=== PATIENT | male | born 1985 | race African-American/Black ===

== ENCOUNTER 2022-06-23 05:04 | Inpatient (IN) | payer OTHER ==
[~2022-06-23] VITALS: Ht 172.7 cm; Wt 86.2 kg
[2022-06-23] MEDS ORDERED: ONDANSETRON HCL INJ 2MG/ML 2ML 2 MG/ML VIAL IV STA (06:36)
[2022-06-23] MEDS ORDERED: KETOROLAC TROMETHAMINE 30 MG/ML VIAL IV STA (06:36)
[2022-06-23] MEDS ORDERED: Vancomycin IV 1 GM in SODIUM CHLORIDE 0.9% 250ML 250 ML IV ONE (06:45)
[2022-06-23] MEDS ORDERED: SODIUM CHLORIDE 0.9% 1000ML 1,000 ML IV SCH (06:45)
[2022-06-23] MEDS ORDERED: IOPAMIDOL 370 MG/ML 100 ML INFUS..BTL INJ ONE (07:08)
[2022-06-23] MEDS ORDERED: PIPERACILLIN/TAZOBACTAM 3.375 GM VIAL ONE (07:20)
[2022-06-23] MEDS ORDERED: SODIUM CHLORIDE 0.9% 250ML 250 ML ONE (07:20)
[2022-06-23] MEDS ORDERED: Vancomycin IV 1 GM VIAL ONE (07:21)
[2022-06-23] MEDS ORDERED: Morphine 4mg INJECTION 4 MG/ML INJ IV PRN (08:30)
[2022-06-23] MEDS ORDERED: ONDANSETRON HCL INJ 2MG/ML 2ML 2 MG/ML VIAL IV PRN (08:30)
[2022-06-23] MEDS: Vancomycin IV 1 GM in SODIUM CHLORIDE 0.9% 250ML 250 ML IV SCH ×2 (08:30→21:31)
[2022-06-23] MEDS: SODIUM CHLORIDE 0.9% 1000ML 1,000 ML IV SCH ×2 (08:41→21:48)
[2022-06-23] MEDS ORDERED: ACETAMINOPHEN 325 MG TAB PO PRN (11:30)
[2022-06-23] MEDS ORDERED: HYDRALAZINE HCL 20 MG/ML VIAL IV PRN (11:30)
[2022-06-23] MEDS ORDERED: POLYETHYLENE GLYCOL 3350 17 GM PACK PO PRN (11:30)
[2022-06-23 11:40] VITALS: BP 117/84
[2022-06-23] MEDS ORDERED: Morphine 2mg Syringe 2 MG/ML SYR IV PRN (11:45)
[2022-06-23] MEDS: METRONIDAZOLE 500MG/NS 100ML 100 ML IV SCH ×2 (12:06→17:14)
[2022-06-23] MEDS: DOCUSATE SODIUM 100 MG CAP PO SCH ×3 (12:18→21:29)
[2022-06-23] MEDS ORDERED: DOCUSATE SODIUM 100 MG CAP PO SCH (13:00)
[2022-06-23] MEDS: FAMOTIDINE 20 MG/2 ML VIAL IV SCH (17:13)
[2022-06-23] MEDS: HYDROMORPHONE 1MG/1ML INJ IV PRN ×2 (17:14→21:48)
[2022-06-23 17:35] VITALS: BP 104/63
[2022-06-23 20:00] VITALS: BP 92/64
[2022-06-23] MEDS ORDERED: TEMAZEPAM 7.5 MG CAP PO PRN (21:00)
[2022-06-24] VITALS (9 sets, daily range): BP systolic 104–129; BP diastolic 63–88
[2022-06-24] MEDS: METRONIDAZOLE 500MG/NS 100ML 100 ML IV SCH ×5 (00:29→23:36)
[2022-06-24] MEDS: HYDROMORPHONE 1MG/1ML INJ IV PRN (05:19)
[2022-06-24] MEDS: SODIUM CHLORIDE 0.9% 1000ML 1,000 ML IV SCH ×3 (05:53→16:30)
[2022-06-24 06:31] LABS: BASOPHILS # (AUTO) 0.1 (0.0-0.1); BASOPHILS % 0.3 % (0.0-1.0); EOSINOPHILS % 0.1 % (0.0-6.0); HEMATOCRIT 34.1 % (38.2-49.6); HEMOGLOBIN 11.2 g/dL (14.0-18.0); LYMPHOCYTES # (AUTO) 1.4 (1.0-3.2); LYMPHOCYTES % 6.8 % (18.0-39.1); MEAN CORPUSCULAR HGB CONC 32.8 g/dL (31-35); MEAN CORPUSCULAR VOLUME 85.3 fL (81-99); MONOCYTES # (AUTO) 1.4 (0.2-0.8); NEUTROPHILS # (AUTO) 16.9 (2.1-6.9); NEUTROPHILS % 84.5 % (38.7-80.0); PLATELET COUNT 227 x10e3/uL (140-360); RED CELL DISTRIBUTION WIDTH 12.6 % (11.7-14.4)
[2022-06-24 06:34] LABS: CHOL/HDL RATIO 3.1 (3.9-4.7); MAGNESIUM 1.8 MG/DL (1.3-2.1); PHOSPHORUS 1.7 MG/DL (2.3-4.7)
[2022-06-24] MEDS ORDERED: TEMAZEPAM 15 MG CAP PO PRN (07:00)
[2022-06-24 07:01] LABS: ALBUMIN/GLOBULIN RATIO 0.7 (0.8-2.0); ANION GAP 16.8 mmol/L (8-16); CALCIUM 8.7 mg/dL (8.4-10.2); CREATININE, SERUM 1.14 mg/dL (0.72-1.25); POTASSIUM 3.8 mmol/L (3.5-5.1)
[2022-06-24 07:02] LABS: FERRITIN 546.33 ng/mL (21.81-274.66); THYROID STIMULATING HORMONE 1.74 uIU/mL (0.350-4.940)
[2022-06-24] MEDS: FAMOTIDINE 20 MG/2 ML VIAL IV SCH ×2 (08:53→16:23)
[2022-06-24] MEDS: Vancomycin IV 1 GM in SODIUM CHLORIDE 0.9% 250ML 250 ML IV SCH (08:53)
[2022-06-24] MEDS: ASCORBIC ACID 500 MG TAB PO SCH ×2 (09:00→16:23)
[2022-06-24] MEDS: DOCUSATE SODIUM 100 MG CAP PO SCH ×3 (09:00→20:50)
[2022-06-24] MEDS ORDERED: POTASSIUM PHOSPHATE 15 MM in SODIUM CHLORIDE 0.9% 250ML 250 ML IV ONE (10:00)
[2022-06-24] MEDS ORDERED: LIDOCAINE HCL 1% LOCAL INJ 20 ML VIAL ONE (11:08)
[2022-06-24] MEDS ORDERED: BUPIVACAINE 0.5%/EPI 30 ML SDV INJ ONE (11:08)
[2022-06-24] MEDS ORDERED: DEXAMETHASONE SOD PHOS INJ 4 MG/ML SDV ONE (12:10)
[2022-06-24] MEDS ORDERED: POVIDONE IODINE 0.05% 0.05 % ML PO ONE (12:10)
[2022-06-24] MEDS ORDERED: PROPOFOL IV EMULSION 10 MG/ML 20 ML VIAL ONE (12:10)
[2022-06-24] MEDS ORDERED: ONDANSETRON HCL INJ 2MG/ML 2ML 2 MG/ML VIAL ONE (12:10)
[2022-06-24] MEDS ORDERED: KETOROLAC TROMETHAMINE 30 MG/ML VIAL ONE (12:10)
[2022-06-24] MEDS ORDERED: LIDOCAINE HCL 2% LOCAL INJ 5 ML SDV VIAL INJ ONE (12:10)
[2022-06-24] MEDS ORDERED: SEVOFLURANE INHAL SOLN 250 ML PEN BTL ONE (12:10)
[2022-06-24] MEDS ORDERED: LIDOCAINE JELLY 2% 10ML URO-JET ONE (12:21)
[2022-06-24] MEDS ORDERED: FENTANYL CITRATE/PF 100MCG/2 ML INJ ONE (12:29)
[2022-06-24] MEDS: IRON SUCROSE 100 MG in SODIUM CHLORIDE 0.9% 100 ML IV SCH (13:10)
[2022-06-24 14:41] LABS: CLARITY,URINE SL CLOUDY (CLEAR); COLOR,URINE AMBER (YELLOW); KETONES,URINE 1+ (NEGATIVE); LEUKOCYTE ESTERASE ,URINE NEGATIVE (NEGATIVE); NITRITE,URINE NEGATIVE (NEGATIVE); PROTEIN,URINE DIPSTICK 1+ (NEGATIVE); URINE UROBILINOGEN 1 mg/dL (0.2 - 1)
[2022-06-24 14:53] LABS: BACTERIA,URINE MODERATE /HPF; RBC,URINE 0-5 /HPF (0-5)
[2022-06-25] VITALS (9 sets, daily range): BP systolic 101–124; BP diastolic 58–88
[2022-06-25] MEDS: SODIUM CHLORIDE 0.9% 1000ML 1,000 ML IV SCH ×3 (00:30→21:51)
[2022-06-25 05:43] LABS: BASOPHILS # (AUTO) 0.1 (0.0-0.1); BASOPHILS % 0.2 % (0.0-1.0); EOSINOPHILS % 0.1 % (0.0-6.0); HEMATOCRIT 30.7 % (38.2-49.6); HEMOGLOBIN 9.7 g/dL (14.0-18.0); LYMPHOCYTES % 3.8 % (18.0-39.1); MEAN CORPUSCULAR HEMOGLOBIN 28.2 pg (28-32); MEAN CORPUSCULAR HGB CONC 31.6 g/dL (31-35); MEAN CORPUSCULAR VOLUME 89.2 fL (81-99); MONOCYTES # (AUTO) 1.4 (0.2-0.8); NEUTROPHILS # (AUTO) 24.5 (2.1-6.9); NEUTROPHILS % 89.9 % (38.7-80.0); PLATELET COUNT 222 x10e3/uL (140-360); RED BLOOD COUNT 3.44 x10e6/uL (4.3-5.7); RED CELL DISTRIBUTION WIDTH 12.2 % (11.7-14.4)
[2022-06-25] MEDS: METRONIDAZOLE 500MG/NS 100ML 100 ML IV SCH ×3 (06:06→16:16)
[2022-06-25 06:08] LABS: ANION GAP 14.7 mmol/L (8-16); CALCIUM 8.3 mg/dL (8.4-10.2); CREATININE, SERUM 0.88 mg/dL (0.72-1.25); PHOSPHORUS 2.3 MG/DL (2.3-4.7); POTASSIUM 3.7 mmol/L (3.5-5.1)
[2022-06-25 07:41] LABS: EOSINOPHILS % (MANUAL) 1 % (0-7); LYMPHOCYTES % (MANUAL) 1 % (19-48); MONOCYTES % (MANUAL) 4 % (3.4-9.0); NEUTROPHILS % (MANUAL) 94 % (40-74)
[2022-06-25 07:42] LABS: PLATELET ESTIMATE ADEQUATE; PLATELET MORPHOLOGY COMMENT NORMAL; RBC MORPHOLOGY COMMENT NORMAL
[2022-06-25] MEDS: DOCUSATE SODIUM 100 MG CAP PO SCH ×3 (09:23→21:50)
[2022-06-25] MEDS: FAMOTIDINE 20 MG/2 ML VIAL IV SCH ×2 (09:23→16:16)
[2022-06-25] MEDS: ASCORBIC ACID 500 MG TAB PO SCH ×2 (09:23→16:15)
[2022-06-25] MEDS: IRON SUCROSE 100 MG in SODIUM CHLORIDE 0.9% 100 ML IV SCH (09:23)
[2022-06-25] MEDS ORDERED: ASCORBIC ACID500 MG PO (09:49)
[2022-06-25] MEDS ORDERED: FERROUS SULFAT325 MG PO (09:49)
[2022-06-25] MEDS: NEOMYCIN/POLYMYXIN/BACITRACIN 15 GM TUBE TOP SCH (10:43)
[2022-06-25] MEDS: HYDROMORPHONE 1MG/1ML INJ IV PRN ×3 (12:31→21:48)
[2022-06-26] VITALS (7 sets, daily range): BP systolic 103–119; BP diastolic 60–76
[2022-06-26] MEDS: SODIUM CHLORIDE 0.9% 1000ML 1,000 ML IV SCH ×2 (00:30→08:35)
[2022-06-26] MEDS: METRONIDAZOLE 500MG/NS 100ML 100 ML IV SCH ×3 (00:40→12:27)
[2022-06-26] MEDS: HYDROMORPHONE 1MG/1ML INJ IV PRN ×2 (00:41→08:38)
[2022-06-26] MEDS: HYDROCODONE/APAP 7.5MG-325MG 1 EA TAB PO PRN ×3 (01:40→15:27)
[2022-06-26 05:51] LABS: BASOPHILS % 0.2 % (0.0-1.0); EOSINOPHILS % 0.1 % (0.0-6.0); HEMATOCRIT 27.5 % (38.2-49.6); HEMOGLOBIN 8.9 g/dL (14.0-18.0); LYMPHOCYTES # (AUTO) 1.4 (1.0-3.2); LYMPHOCYTES % 8.2 % (18.0-39.1); MEAN CORPUSCULAR HEMOGLOBIN 27.9 pg (28-32); MEAN CORPUSCULAR HGB CONC 32.4 g/dL (31-35); MEAN CORPUSCULAR VOLUME 86.2 fL (81-99); MONOCYTES # (AUTO) 0.9 (0.2-0.8); MONOCYTES % 5.3 % (4.4-11.3); NEUTROPHILS # (AUTO) 14.7 (2.1-6.9); NEUTROPHILS % 85.2 % (38.7-80.0); PLATELET COUNT 211 x10e3/uL (140-360); RED BLOOD COUNT 3.19 x10e6/uL (4.3-5.7); RED CELL DISTRIBUTION WIDTH 12.9 % (11.7-14.4)
[2022-06-26 06:25] LABS: ANION GAP 13.6 mmol/L (8-16); CALCIUM 7.9 mg/dL (8.4-10.2); CREATININE, SERUM 0.8 mg/dL (0.72-1.25); POTASSIUM 3.6 mmol/L (3.5-5.1)
[2022-06-26] MEDS: NEOMYCIN/POLYMYXIN/BACITRACIN 15 GM TUBE TOP SCH (08:36)
[2022-06-26] MEDS: DOCUSATE SODIUM 100 MG CAP PO SCH ×2 (08:36→15:00)
[2022-06-26] MEDS: ASCORBIC ACID 500 MG TAB PO SCH (08:36)
[2022-06-26] MEDS: FAMOTIDINE 20 MG/2 ML VIAL IV SCH (08:37)
[2022-06-26] MEDS: IRON SUCROSE 100 MG in SODIUM CHLORIDE 0.9% 100 ML IV SCH (08:37)
[2022-06-26] MEDS ORDERED: ONDANSETRON HCL 4 MG ORAL DISINTEGRATING TAB PO PRN (16:00)
[2022-06-26] MEDS ORDERED: FAMOTIDINE 20 MG TAB PO SCH (16:30)
[2022-06-26] MEDS ORDERED: METRONIDAZOLE 500 MG TAB PO SCH (18:00)
== END 2022-06-26 17:12 | disposition home or self-care (01) | DRG 855 ==
LOC: FSED 05:21 → ERHOLD 08:26 → MED/SURG3 10:26
PROVIDERS: ADMIT Internal Medicine; ATTEND Internal Medicine
PROC: 3E03329 Introduction of Other Anti-infective into Peripheral Vein, Percutaneous Approach (ICD-10-PCS; 2022-06-23)
PROC: 0JBB0ZZ Excision of Perineum Subcutaneous Tissue and Fascia, Open Approach (ICD-10-PCS; 2022-06-24)
PROC: 0DBQ0ZZ Excision of Anus, Open Approach (ICD-10-PCS; principal; 2022-06-24 11:30)
DX: A41.9 Sepsis, unspecified organism (principal); K61.39 Other ischiorectal abscess; D64.9 Anemia, unspecified; E86.0 Dehydration; E83.39 Other disorders of phosphorus metabolism; Z82.49 Family history of ischemic heart disease and other diseases of the circulatory system; Z83.3 Family history of diabetes mellitus; Z82.3 Family history of stroke; Z20.822 Contact with and (suspected) exposure to COVID-19
CPT/HCPCS: 36415; 74177; 80048; 80053; 80061; 81001; 82607; 82728; 82746; 83036; 83540; 83605; 83735; 84100; 84443; 84466; 85025; 85045; 87040; 87071; 87075; 87205; 94799; 96374; 96376; 99284; J1100; J1170; J1756; J1885; J2001; J2270; J2405; J2543; J3010; J3370; J7030; J7050; Q9967